=== PATIENT | male | born 1960 | race Caucasian/White ===

== ENCOUNTER 2019-03-11 09:57 | Emergency (ER) | payer SELFPAY ==
[2019-03-11] MEDS: DIPHTH/TET/ACEL PERTUSS (ADULT) 0.5 ML VIAL IM* (10:50)
[2019-03-11] MEDS: SILVER NITRATE SWAB TOP (11:39)
== END 2019-03-11 13:01 | disposition home or self-care (01) ==
LOC: FTE 09:57
DX: S61.012A Laceration without foreign body of left thumb without damage to nail, initial encounter (principal); W29.3XXA Contact with powered garden and outdoor hand tools and machinery, initial encounter; Y92.9 Unspecified place or not applicable; Z23 Encounter for immunization
CPT/HCPCS: 12001; 73140; 90471; 90715; 99283-25